=== PATIENT | female | born 1995 | race Caucasian/White ===

== ENCOUNTER 2018-03-15 09:21 | Emergency (ER) | payer OTHER ==
--- NOTE | 2018-03-15 09:36 | EDPHY ---
H & P Stated Complaint: anxiety, ETOH withdrawl Time Seen by Provider: 03/15/18 09:34 HPI/ROS: HPI: This is a 22-year-old female who presents with Chief Complaint: Anxiety, sent from Urgent Care Location: psych Quality: Anxiety, alcohol withdrawal, alcohol misuse Duration: Several months Signs and Symptoms: no auditory hallucinations, no visual hallucinations, no suicidal ideation with a plan, no homicidal ideation, no paranoia Timing: Acute, worsening Severity: Moderate Context: Patient is currently in law school and presents with complaints of anxiety and feeling like she is going through mild alcohol withdrawal in the last 36 hr. She reports that her symptoms are slowly improving but her anxiety continues to increase. She reports that she only drank intermittently until a few months ago while in law school when she had extreme anxiety about having poor performance and taking test. She reports that she is doing well law school despite her anxiety that she is going to fail. She reports that she has strong family support. She drinks normally a bottle wine each evening but last weekend she drank up to a bottle and half a wine each day. She reports that approximately 36 hr ago she started to feel nauseous and jittery. She believes that she may have mild alcohol withdrawal. She denies any seizures, hallucinations, tremors, fever, vomiting, abdominal pain. She denies suicidal ideation, homicidal ideation. She originally went to urgent care who directed her to the emergency room. Modifying Factors: None Comment: ROS: A comprehensive 10 system review of systems is otherwise negative aside from elements mentioned in the history of present illness. MEDICAL/SURGICAL/SOCIAL HISTORY: Medical history: Anxiety, alcohol abuse Surgical history: Tonsillectomy Social history: Never smoked. Employed. Denies drug use. Family history noncontributory. CONSTITUTIONAL: Tearful polite and cooperative young adult white female, awake and alert, no obvious distress HEENT: Atraumatic and normocephalic, PERRL, EOMI. Nares patent; no rhinorrhea; no nasal mucosal edema. Tympanic membranes clear. Oropharynx clear, no exudate and moist pink mucosa. Airway patent. No lymphadenopathy. No meningismus. Cardiovascular: Normal S1/S2, tachycardia, regular rhythm, without murmur rub or gallop. PULMONARY/CHEST: Symmetrical and nontender. Clear to auscultation bilaterally. Good air movement. No accessory muscle usage. ABDOMEN: Soft, nondistended, nontender, no rebound, no guarding, no peritoneal signs, no masses or organomegaly. No CVAT. EXTREMITIES: 2/2 pulses, strength 5/5, no deformities, no clubbing, no cyanosis or edema. NEUROLOGICAL: no focal neuro deficits. GCS 15. SKIN: Warm and dry, no erythema. no rash. Good capillary refill. PSYCH: Good eye contact, no flight of ideas, organized thought process, good insight and judgment, no auditory hallucinations, no visual hallucinations, no suicidal ideation with a plan, no homicidal ideation, no paranoia Source: Patient Exam Limitations: No limitations - Personal History Current Tetanus/Diphtheria Vaccine: Yes Current Tetanus Diphtheria and Acellular Pertussis (TDAP): Yes - Medical/Surgical History Hx Asthma: No Hx Chronic Respiratory Disease: No Hx Diabetes: No Hx Cardiac Disease: No Hx Renal Disease: No Hx Cirrhosis: No Hx Alcoholism: Yes Hx HIV/AIDS: No Hx Splenectomy or Spleen Trauma: No Other PMH: anxiety, tonsilectomy - Social History Smoking Status: Never smoked Constitutional: Initial Vital Signs Temperature (C) 37 C 03/15/18 09:27 Heart Rate 112 H 03/15/18 09:27 Respiratory Rate 18 03/15/18 09:27 Blood Pressure 137/100 H 03/15/18 09:27 O2 Sat (%) 97 03/15/18 09:27 O2 Delivery Mode Room Air Allergies/Adverse Reactions: No Known Allergies Allergy (Unverified 03/15/18 09:26) Home Medications: Medication Instructions Recorded Celexa 03/15/18 Lorazepam 03/15/18 Multivitamin 03/15/18 Medical Decision Making ED Course/Re-evaluation: Vital signs reviewed and show mild elevated blood pressure and tachycardia. CIWA=2 Patient given p.o. Librium 25 mg and p.o. Ativan 0.5 mg Does not meet hold or [facility] criteria Case management consult for outpatient resources. Patient was given extensive outpatient resources and appointment times and dates for close follow-up. No signs of delirium tremens, alcohol withdrawal seizures. This patient was seen under the supervision of my secondary supervising physician. I evaluated care for this patient independently. Discussed this patient with Dr. Powell who did not see the patient. Differential Diagnosis: Differential diagnosis includes but is not limited to major depression, anxiety disorder, schizophrenia, bipolar disorder, intoxicant use, suicidal ideation, psychosis, josy, alcohol withdrawal. - Data Points Medications Given: Discontinued Medications Chlordiazepoxide HCl (Librium) 25 mg PO EDNOW ONE Stop: 03/15/18 09:46 Last Admin: 03/15/18 09:49 Dose: 25 mg Lorazepam (Ativan) 0.5 mg PO EDNOW ONE Stop: 03/15/18 09:46 Last Admin: 03/15/18 09:49 Dose: 0.5 mg Departure - Departure Disposition: Home, Routine, Self-Care Clinical Impression: Alcohol abuse Condition: Good Instructions: Abuse of Alcohol (ED) Additional Instructions: Please refrain from drinking alcohol excessively. Please contact alcoholics anonymous and outpatient counseling in the next 1-2 days. Referrals: Florin Resendez DO [Primary Care Provider] - As per Instructions
[2018-03-15] MEDS ORDERED: chlordiazePOXIDE 25 MG CAP PO ONE (09:45)
[2018-03-15] MEDS ORDERED: LORazepam 0.5 MG TAB PO ONE (09:45)
[2018-03-15 10:54] VITALS: BP 128/90
== END 2018-03-15 10:54 | disposition home or self-care (01) ==
LOC: EEVIPCON 09:21
DX: F10.920 Alcohol use, unspecified with intoxication, uncomplicated (principal); F41.9 Anxiety disorder, unspecified